=== PATIENT | female | born 1950 | race Caucasian/White ===

== ENCOUNTER 2017-05-16 05:01 | Inpatient (IN) | payer OTHER ==
[2017-04-17 11:35] VITALS: BMI 25.0
--- NOTE | 2017-04-17 12:18 | PAT Medication Instructions ---
Service Date Apr 17, 2017. Current Home Medication List Acetaminophen (Tylenol Arthritis Ext Rel), 650 MG PO Q8H PRN for Pain Aspirin (Aspirin Ec), 325 MG PO QAM Diphenhydramine Hcl (Sleep) (Sleep Aid), 1 TAB PO HS PRN for Sleep Ibuprofen (Advil), 400-600 MG PO Q4H Solifenacin (Vesicare), 5 MG PO DAILY PRN for BLADDER ISSUES Medication Instructions For Your Scheduled Surgery - Hold the following medications per your surgeon's instructions: Ibuprofen (Advil), 400-600 MG PO Q4H - Take the following medications the morning of surgery with a sip of water: Solifenacin (Vesicare), 5 MG PO DAILY PRN for BLADDER ISSUES (if needed) Aspirin (Aspirin Ec), 325 MG PO QAM (OKAY PER SURGEON) Acetaminophen (Tylenol Arthritis Ext Rel), 650 MG PO Q8H PRN for Pain (if needed , can take up to four hours before surgery) - Take the following medications as scheduled the night before surgery: Solifenacin (Vesicare), 5 MG PO DAILY PRN for BLADDER ISSUES (if needed) Diphenhydramine Hcl (Sleep) (Sleep Aid), 1 TAB PO HS PRN for Sleep (if needed) If you have any questions please call us at [phone] or [phone] or [phone]
[2017-04-17 13:16] LABS: BASO % 0.5 %; BASO ABS # 0.03 K/uL (0-0.2); COMPLETE YES; EOS % 2.2 %; HEMATOCRIT 42.5 % (37-47); LYMPH % 26.9 %; LYMPH ABS # 1.59 K/uL (1.2-3.4); MEAN CORPUSCULAR HEMOGLOBIN 26.4 pg (25-34); MEAN CORPUSCULAR HGB CONC 31.1 g/dl (32-36); MONO % 8.1 %; NEUT % 62.3 %; PLATELET COUNT 243 K/uL (130-400); WHITE BLOOD COUNT 5.92 K/uL (4.8-10.8)
[2017-04-17 13:26] LABS: PARTIAL THROMBOPLASTIN RATIO 1.1; PROTHROMBIN TIME (PATIENT) 10.5 SECONDS (9.0-12.0)
--- NOTE | 2017-04-17 13:48 | DIAGNOSTIC IMAGING REPORT ---
CHEST 2 VIEWS ROUTINE HISTORY: 66 years-old Female PAT preadmission exam without acute chest complaints COMPARISON: None available TECHNIQUE: Frontal and lateral views of the chest FINDINGS: Cardiomediastinal and hilar silhouettes are within normal limits. There is no pneumothorax, pleural effusion, focal airspace consolidation or overt pulmonary edema. Degenerative changes are seen within the shoulders and spine. IMPRESSION: No acute cardiopulmonary process. The above report was generated using voice recognition software. It may contain grammatical, syntax or spelling errors. Electronically signed by: Pablito Iniguez M.D. 04/17/2017 1:47 PM Dictated Date/Time: 04/17/2017 1:46 PM
[2017-04-17 14:03] LABS: BUN/CREATININE RATIO 18.9 (10-20); CALCIUM 9.6 mg/dl (8.5-10.1); CREATININE 0.73 mg/dl (0.60-1.20); POTASSIUM 4.2 mmol/L (3.5-5.1)
--- NOTE | 2017-05-10 14:01 | HISTORY & PHYSICAL EXAMINATION ---
DATE OF ADMISSION: 05/16/2017 CHIEF COMPLAINT: Bilateral knee pain and discomfort, left side greater than right. HISTORY OF PRESENT ILLNESS: The patient is a 66-year-old white female who now presents for surgical treatment of her left knee. She has got a long history of left knee pain and discomfort with known diagnosis of synovial osteochondromatosis. I have been following her for years and treating her conservatively. The pain has just gradually gotten worse. [place] and having really difficulty due to her knee pain and discomfort. She would now like to proceed with surgical treatment. The pain is constant. The more she walks, the more it hurts. It is really interfering with her recreational activities. PAST MEDICAL HISTORY: 1. Mitral valve prolapse. 2. Arthritis. PAST SURGICAL HISTORY: None. ALLERGIES: None. CURRENT MEDICATIONS: 1. Aspirin 2. Ibuprofen. 3. VESIcare. 4. Tylenol. SOCIAL HISTORY: A 66-year-old white female. The patient lives in [place]. She is . 5-10 drinks per week. FAMILY HISTORY: Heart disease, brain tumors, prostate cancer. REVIEW OF SYSTEMS: Negative for diabetes, neurologic problems, vascular problems, bleeding disorders. Denies any chest pain or shortness of breath. She does have fairly active lifestyle. PHYSICAL EXAMINATION: GENERAL: Reveals a pleasant, middle-aged female. She looks to be in excellent health. HEENT: Benign. NECK: Supple. No lymphadenopathy. LUNGS: Clear to auscultation. HEART: Regular rate and rhythm. ABDOMEN: Soft, nontender, nondistended. EXTREMITIES: Grossly neurovascularly intact except as follows: Examination of the left knee reveals the patient walks with a varus alignment to the knee. She does have a little bit of a varus thrust. She has got bony hypertrophy medially. She does have quite a bit of fullness to the back of her knee. Range of motion is 5-110. No instability. No pain with hip motion. X-RAYS: X-rays of the left knee revealed advanced left knee DJD. She has complete loss of her medial joint space. She has got multiple loose bodies in the knee, particularly in the posterior aspect of her knee. 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 She has failed conservative treatment and would like to have her left knee replaced as it is really limiting her lifestyle. PLAN: We will take her to the operating room and do a left total knee replacement. The risks and benefits of this procedure were explained to the patient including but not limited to DVT, PE, , infection, neurological injury, neurovascular, bleeding problem, pain, limited range of motion, stiffness, failure to relieve symptoms, incomplete relief of symptoms, need for further surgery in the future, fracture, leg length inequality, nerve palsy, etc. The patient understands and desires to proceed. Informed consent was obtained. We will do the best we can get as many as these loose pieces out, but we are not going to compromise her neurovascular status to do this. As far as discharge plans, she is planning to be discharged to home using [facility] home health program.
[2017-05-16] VITALS (9 sets, daily range): BP systolic 129–158; BP diastolic 69–87; PULSE 61–85; TEMP 36.6–36.8; O2SAT 97–100; Ht 165.1 cm; Wt 69.3 kg
[~2017-05-16] VITALS: Ht 165.1 cm; Wt 69.3 kg
[~2017-05-16 05:01] MED LIST: ACET1TAB84 PO; ASPI325T39 PO; DIPH1TAB98 PO; IBUP-1050 PO; VSC/5 PO
[2017-05-16] MEDS ORDERED: LACTATED RINGER'S 1000ML 1,000 ML IV SCH (06:00)
[2017-05-16] MEDS ORDERED: LACTATED RINGER'S 1000ML 500 ML IV ONE (06:00)
[2017-05-16] MEDS ORDERED: CEFAZOLIN 2000MG IV PUSH 10 ML IV SCH (06:00)
[2017-05-16] MEDS ORDERED: BUPIVACAINE LIPOSOME 266 MG, BUPIVACAINE/EPINEPHRINE INJ 50 ML, SODIUM CHLORIDE 0.9% PF... INFIL SCH ×3 (06:00)
[2017-05-16] MEDS ORDERED: LACTATED RINGER'S 1000ML IV SCH (06:00)
[2017-05-16] MEDS ORDERED: METOCLOPRAMIDE HCL 10 MG TAB PO SCH (06:00)
[2017-05-16] MEDS ORDERED: FAMOTIDINE 20 MG TAB PO SCH (06:00)
[2017-05-16] MEDS ORDERED: SCOPOLAMINE 1.5 MG TDSY TD SCH (06:00)
[2017-05-16] MEDS ORDERED: TRANEXAMIC ACID INJ 1,000 MG in SYRINGE 0 ML IV SCH (06:00)
[2017-05-16] MEDS ORDERED: ACETAMINOPHEN 500 MG TAB PO SCH (06:00)
[2017-05-16] MEDS ORDERED: GABAPENTIN 300 MG CAP PO SCH (06:00)
[2017-05-16] MEDS ORDERED: PROPOFOL IV EMULSION 10 MG/ML 20 ML VIAL IV ONE (06:22)
[2017-05-16] MEDS ORDERED: MIDAZOLAM HCL 1 MG/ML 2ML VIAL ONE ×2 (06:22→07:05)
[2017-05-16] MEDS ORDERED: LIDOCAINE HCL 2% 2 ML VIAL (20MG/ML) ONE (06:22)
[2017-05-16] MEDS ORDERED: BUPIVACAINE 0.5 % 5 MG/1 ML PF 10ML VIAL ONE (06:28)
[2017-05-16] MEDS ORDERED: BUPIVACAINE 0.25% 30 ML VIAL ONE (06:28)
[2017-05-16] MEDS ORDERED: BUPIVACAINE/EPINEPHRINE 0.25% 1:200,000 30 ML VIAL ONE (06:29)
[2017-05-16] MEDS ORDERED: SODIUM CHLORIDE 0.9% PF 50 ML VIAL ONE (06:29)
[2017-05-16] MEDS ORDERED: BUPIVACAINE LIPOSOME 1/3% 266 MG/20 ML VIAL INFIL ONE (06:29)
[2017-05-16] MEDS ORDERED: BACITRACIN 50000 UNIT VIAL ONE (06:29)
--- NOTE | 2017-05-16 06:56 | History & Physical Bridge Note ---
H&P Re-Evaluation Bridge Note: I have examined the patient, reviewed the History & Physical and in the interval since the performance of the History & Physical I have noted the following changes of clinical significance: No changes noted
[2017-05-16] MEDS ORDERED: EpHEDrine SULFATE INJ 50 MG/ML AMP IV PRN (07:15)
[2017-05-16] MEDS ORDERED: ATROPINE SULFATE 0.1 MG/ML 5ML SYR IV PRN (07:15)
[2017-05-16] MEDS ORDERED: ONDANSETRON INJ 2 MG/ML 2 ML VIAL IV PRN ×2 (07:15→08:45)
[2017-05-16] MEDS ORDERED: ZOLPIDEM TARTRATE 5 MG TAB PO PRN (08:45)
[2017-05-16] MEDS ORDERED: BISACODYL 10 MG SUPP PR PRN (08:45)
[2017-05-16] MEDS ORDERED: METOCLOPRAMIDE HCL INJ 5 MG/ML 2 ML VIAL IV PRN (08:45)
[2017-05-16] MEDS ORDERED: ALUMINUM/MAGNESIUM/SIMETH (MAALOX MAX) 30 ML UDC PO PRN (08:45)
[2017-05-16] MEDS ORDERED: MAGNESIUM HYDROXIDE SUSP 30 ML UDC PO PRN (08:45)
[2017-05-16] MEDS ORDERED: SILVER SULFADIAZINE 1% CR 50 GM JAR EXT PRN (08:45)
[2017-05-16] MEDS ORDERED: DiphenhydrAMINE HCL 50 MG/ML VIAL IV PRN (08:45)
[2017-05-16] MEDS ORDERED: OXYCODONE HCL IR 5 MG TAB (IMMEDIATE RELEASE) PO PRN (08:45)
--- NOTE | 2017-05-16 08:45 | [facility] Post Operative Brief Note ---
Immediate Operative Summary Operative Date May 16, 2017. Pre-Operative Diagnosis Left knee degenerative joint disease Post-Operative Diagnosis Left knee degenerative joint disease Procedure(s) Performed Left total knee arthroplasty, cemented Surgeon Dr. Hung Disk And Tape Machine Tender Surgeon(s) Felton Perez PA-C Estimated Blood Loss 50 mL Findings Left Knee DJD; Multiple Loose Bodies Fluids (cc crystalloids) 1600 cc Specimens A: Left knee bone and tissue Drains None Anesthesia Spinal Complication(s) None Disposition Recovery Room / PACU
--- NOTE | 2017-05-16 09:15 | OPERATIVE REPORT ---
DATE OF OPERATION: 05/16/2017 SURGEON: Rigo Hung MD HAM STRINGER: CARMINA Mohan PREOPERATIVE DIAGNOSES: 1. Left knee degenerative joint disease. 2. 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 POSTOPERATIVE DIAGNOSES: Same. PROCEDURE PERFORMED: Left cemented posterior stabilized total knee arthroplasty. COMPLICATIONS: None. ESTIMATED BLOOD LOSS: 50 mL. FLUID REPLACEMENT: 1600 mL crystalloid fluid replacement. TOURNIQUET TIME: 59 minutes at 300 mmHg. ANESTHESIA: Spinal with adductor canal block. DRAINS: None. SPECIMENS: 1. Left knee sent for pathology. 2. Multiple loose bodies. OPERATIVE INDICATIONS: The patient is a 67-year-old very active female who has had a long history of left knee pain and discomfort. She has been through extensive conservative care over the years. Her symptoms became more unmanageable and really starting to affect her quality of life. She has tried to maintain an active lifestyle, but having difficulty. She failed conservative treatment and elected to proceed with total knee arthroplasty. The patient has advanced knee DJD with multiple loose bodies in the posterior aspect of her knee consistent with osteochondromatosis. OPERATIVE FINDINGS: Operative findings revealed advanced left knee DJD. She had extensive grade 4 changes in the medial compartment. She did have multiple loose bodies in the posterior aspect of her knee. There were certainly multiple more loose bodies in the very posterior aspect of her knee. Moderate size joint effusion. She had a fixed varus deformity to her knee. She had osteophytes primarily in the medial compartment. OPERATIVE IMPLANTS: Operative implants consisted of: 1. Biomet Vanguard size 65 left posterior stabilized femoral component. 2. Biomet size 71 tibial tray. 3. A 10-mm posterior stabilized polyethylene insert. 4. A 31 x 8 all poly patella. OPERATIVE PROCEDURE: The patient was taken to the operating room, identified and placed on the operating table in the supine position. All contact areas were appropriately padded. IV antibiotics were provided by anesthesia team. A spinal anesthetic and adductor canal block had been provided in the holding area. Peña catheter was placed in sterile fashion. The left thigh tourniquet was then placed and left lower extremity was then prepped and draped in the usual sterile fashion. Left leg was elevated and exsanguinated with Esmarch and tourniquet was placed at 300 mmHg. An anterior approach to the left knee was then performed through a longitudinal incision centered over the patella. Sharp dissection was carried through the subcutaneous tissues down to the level of the extensor mechanism. A medial parapatellar arthrotomy incision was made. Some subperiosteal dissection was carried out medially. The fat pad was resected from beneath the patellar tendon. The lateral patellofemoral ligament was released. The patella was everted and knee was flexed. The osteophytes were taken off the distal femur. The ACL and PCL were then released from the distal femur and the tibia subluxated anteriorly. The external tibial alignment jig was then placed in the anterior face of the tibia and adjusted to 14 mm medially. Proximal tibial cut was made to remove about a millimeter of bone from the most deficient aspect of the medial tibial plateau. Tibia was sized to a size 71. Some osteophytes were taken off medial and posteromedially. Attention was then drawn to the femur. The distal femur was entered with a sharp drill. Intramedullary canal was suctioned. A left 5-degree valgus cutting guide was placed. The distal femoral cutting block was pinned in place. Distal femoral cut was made to take an additional 3 mm of bone off the distal femur. The femur was then sized to a size 65. We did downsize this almost entire size due to her very narrow medial lateral dimensions. The AP cutting block was pinned parallel to the epicondylar axis, which was 4 degrees of external rotation. The anterior cut, anterior chamfer, posterior cut, and posterior chamfer cuts were made. Box cutting guide was placed and adjusted slightly lateral, the box cut was made. The knee was flexed. The remnants of the medial and lateral menisci were excised. I did remove multiple loose bodies from the posterior aspect of it. I did make a small incision in the posterior medial capsule and stuck my finger back in the posterior aspect of the knee. I could feel some loose bodies, which were adherent to the tissues very deep, but I did not feel it was worth trying to fix these out as there was pretty posterior and then would risk neurovascular damage. There did not seem any way that they would enter into the knee joint, so I left the remainder of these alone. A trial femoral component was placed. Tibial tray was pinned in maximum external rotation and drill and stem punch were used to create defect in proximal tibia for the tibial tray. The knee was then trialed and a 10-mm insert fit most appropriately. Attention was then drawn to the patella. The patella was cleaned of all soft tissues. Patella thickness measured 18 mm and it was cut down to 12. It was sized to a size 31 patella. Lug holes were drilled for the 31 patella. The lateral osteophyte was removed. Patella button was placed. Knee was taken through range of motion and patella tracked nicely with no thumbs test. Attention was then drawn toward placement of permanent components. All trial components were removed. A bone plug was placed in the distal femur to limit blood loss. A double batch of Palacos G cement was mixed. A left size 65 posterior stabilized femoral component, size 71 tibial tray, 10-mm posterior stabilized polyethylene insert, and a 31 x 8 all poly patella were then cemented in place. Knee was brought out into full extension until cement hardened. A final cement check was then performed. Pericapsular tissues were injected with a total of 100 mL of a combination of 20 mL of Exparel, 30 mL of normal saline, and 50 mL of 0.25% Marcaine with epinephrine. The patient did receive 1 gram of tranexamic acid. The tourniquet was then let down for final tourniquet time of 59 minutes. The hemostasis was assured with the use of electrocautery. The wound was once again irrigated. The extensor mechanism was then closed with a combination of #1 PDS suture and #1 Vicryl suture in a [id number] fashion. Extensor mechanism was checked and found to be intact. The subcutaneous tissues were then closed with 2-0 Dexon suture in buried interrupted fashion. Skin was closed skin slim. Leg was then cleaned and dried and a sterile dressing of Xeroform, 4 x 4, sterile cast padding and Isaac bandage were applied. The patient was then transferred to the recovery room in stable condition. The patient tolerated the procedure well with no complications. All needle and sponge counts were correct at the end of the operation. I attest to the content of the Intraoperative Record and any orders documented therein. Any exception s are noted below.
--- NOTE | 2017-05-16 09:32 | DIAGNOSTIC IMAGING REPORT ---
TWO VIEWS LEFT KNEE CLINICAL HISTORY: Postoperative examination. FINDINGS: AP and crosstable lateral portable views of the left knee are compared to study dated 03/16/2017. The skeletal structures are osteopenic. A left knee arthroplasty is in near anatomic alignment. There has been undersurface remodeling of the patella. No acute fracture is seen. There are expected postoperative changes around the knee including skin clips, soft tissue edema, and subcutaneous gas. Numerous calcified joint bodies posterior to the knee are similar to previous. IMPRESSION: Expected postoperative changes status post left knee arthroplasty. No acute fracture is seen. Electronically signed by: Ruddy Zacarias M.D. 05/16/2017 9:31 AM Dictated Date/Time: 05/16/2017 9:28 AM
--- NOTE | 2017-05-16 09:55 | Anesthesiology Progress Note ---
Anesthesia Post Op Note Date & Time May 16, 2017 at 09:55 Vital Signs Pain Intensity: 0 Vital Signs Past 12 Hours Date Time Temp Pulse Resp B/P (MAP) Pulse Ox O2 Delivery O2 Flow Rate FiO2 05/16/17 09:45 36.4 69 16 129/73 98 Nasal Cannula 2 05/16/17 09:35 71 16 124/68 99 Nasal Cannula 2 05/16/17 09:25 73 14 128/72 99 Nasal Cannula 2 05/16/17 09:15 76 13 123/68 100 Nasal Cannula 2 05/16/17 09:05 73 12 126/62 100 Nasal Cannula 2 05/16/17 08:55 92 19 128/71 100 Nasal Cannula 2 05/16/17 08:48 36.1 82 16 132/67 99 Nasal Cannula 2 05/16/17 05:40 36.7 85 20 158/87 98 Room Air Notes Mental Status: alert / awake / arousable, participated in evaluation Pt Amnestic to Procedure: Yes Nausea / Vomiting: adequately controlled Pain: adequately controlled Airway Patency, RR, SpO2: stable & adequate BP & HR: stable & adequate Hydration State: stable & adequate Anesthetic Complications: no major complications apparent
[2017-05-16] MEDS: D5W AND 1/2NSS + 20MEQ KCL 1,000 ML IV SCH ×2 (11:45→20:34)
[2017-05-16] MEDS: PANTOprazole SOD 40 MG TAB PO SCH (11:45)
[2017-05-16] MEDS ORDERED: PNEUMOCOCCAL ADMINISTRATION CHARGE ONE (12:45)
[2017-05-16] MEDS ORDERED: PNEUMOCOCCAL POLYSACCHARIDES 25 MCG/0.5 ML VIAL/SYR IM. ONE (12:45)
[2017-05-16] MEDS: FERROUS GLUCONATE 324 MG TAB PO SCH ×2 (13:32→18:31)
[2017-05-16] MEDS: KETOROLAC TROMETHAMINE 15 MG/ML VIAL IV. SCH ×2 (13:34→20:34)
[2017-05-16] MEDS ORDERED: TRANEXAMIC ACID INJ 1,000 MG in SODIUM CHLORIDE 0.9% 100ML 100 ML IV SCH (14:00)
[2017-05-16] MEDS: ACETAMINOPHEN 500 MG TAB PO SCH ×2 (14:24→21:48)
--- NOTE | 2017-05-16 14:40 | PROGRESS NOTE ---
DATE: 05/16/2017 SUBJECTIVE: A 67-year-old white female, postop day #1 from a left knee replacement. She is doing well. Not having much pain yet. No chest pain or shortness of breath. Not feeling dizzy or lightheaded. OBJECTIVE: VITAL SIGNS: Temperature is 36.7. Vital signs stable. PHYSICAL EXAMINATION: GENERAL: Reveals a healthy, pleasant middle-aged female. She is sitting up in her bed and looks pretty comfortable. She is moving her leg around quite freely. LUNGS: Clear to auscultation. HEART: Has a regular rate and rhythm. ABDOMEN: Soft, nontender, nondistended. EXTREMITIES: Grossly neurovascularly intact except as follows: Examination of the left leg reveals the dressing to be clean, dry and intact. Leg is well aligned. She can do a good straight leg raise. She can dorsiflex and plantarflex her foot appropriately. She is neurologically intact. X-RAYS: X-rays of the left knee from recovery room were reviewed. It shows a left cemented posterior stabilized total knee arthroplasty. Components look to be in good position. No signs of problems. ASSESSMENT: A 67-year-old white female, postop from a left knee replacement, doing well. Pain is controlled. She is neurologically intact. PLAN: 1. DVT prophylaxis including thigh-high TEDs, SCDs, and aspirin twice a day. 2. PT/OT. Weight bear as tolerated. Left total knee protocol. 3. Pain control, doing well with current pain regimen. 4. IV antibiotics x24 hours. 5. Disposition: Plan to discharge to home with some home health once adequately recovered.
[2017-05-16] MEDS: CHECK SCOPOLAMINE PATCH PLACEMENT SCH ×2 (15:55→23:35)
[2017-05-16] MEDS: CEFAZOLIN IV 1,000 MG in SYRINGE 0 ML IV SCH ×2 (15:56→23:35)
[2017-05-16] MEDS ORDERED: ACET-24 PO (20:12)
[2017-05-16] MEDS ORDERED: FRRG PO (20:12)
[2017-05-16] MEDS ORDERED: ASPEC325 PO (20:12)
[2017-05-16] MEDS ORDERED: RXC5 PO (20:12)
--- NOTE | 2017-05-16 20:15 | Discharge Instructions ---
Discharge Instructions Date of Service May 16, 2017. Admission Reason for Admission: Left Knee Degenerative Joint Disease Discharge Discharge Diagnosis / Problem: Left Knee Replacment Discharge Goals Goal(s): Decrease discomfort, Improve function, Increase independence, Improve disease control, Therapeutic intervention Activity Recommendations Activity Limitations: per Instructions/Follow-up section Weightbearing Status: Left weightbearing . Instructions / Follow-Up Instructions / Follow-Up ACTIVITY RECOMMENDATIONS: Physical Therapy: * You will go to physical therapy three times each week for four to six weeks after your surgery in order to regain your knee range of motion and to retrain your knee to work properly. * It is just as important to make sure you are getting your knee perfectly straight as it is to regain your knee bend. * Taking a pain pill an hour before therapy can help you have a more productive and comfortable therapy session. Home Exercise: * You were shown a series of exercises (heel props, heel slides, etc.) in the hospital. Do these exercises three to four times each day including the exercises you were shown in physical therapy. Walking: * Get up and walk several times each day. For the first four weeks, try not to stand or walk for more than one hour at a time. If you do stand or walk for more than one hour, you will not hurt anything, but your knee and leg will likely swell. * As you feel comfortable, you may change from the walker or crutches to a cane and then to independent walking. MEDICATIONS: New Medicine: * You will likely be taking one or more of these medications: 1. Oxycodone - A quick and shorter-acting pain medication. Take one to two tablets every four to six hours to lessen your pain. 2. Iron Sulfate - Take two times each day for the month after surgery to help you replace the blood lost during surgery. 3. Aspirin - Thins your blood to lessen the chance of forming a blood clot. * The most common side effects of pain medicine and iron are nausea and constipation. If nausea or constipation is too much of a problem or if you have any questions about your new medicines or doses, call [facility] at [phone]. We will try to help you manage these issues. VERY IMPORTANT TO READ AND REVIEW" Pain: * The immediate post-operative period after knee replacement surgery is often quite painful. * You are given a prescription for pain medicine. You should take it, as directed, when you need it, especially before physical therapy and before going to bed. Pain that interferes with sleep is very common and can last several months. * You will likely need pain medicine for the first four to six weeks. It will not stop all of the pain. The pain will lessen and as you feel better, you may change to milder pain medicine such as Tylenol. * The most common side effects of pain medicine are nausea and constipation, so don't take more than you need. SPECIAL CARE INSTRUCTIONS: TEDs/Elastic Stockings: * The white elastic stockings help limit swelling and prevent blood clots from forming in your legs. The more you wear them, the more they work. * Wear them for six weeks after knee replacement surgery and four weeks after partial knee replacement. Prevention of Infection: * Take antibiotics one hour before any dental cleaning, dental work, urological procedure, gastrointestinal procedure or any invasive surgery in order to prevent your new joint from getting infected. * You may get the antibiotics from the doctor performing the procedure or you may call our office at before and we will call in a prescription to the pharmacy of your choice. Things to Watch For: * Drainage from the incision site that occurs more than one week after your surgery. * Severely increased knee/leg pain or swelling. * Increased redness at the incision site. * Fever above 102 degrees Fahrenheit. * Unusual chest pain or shortness of breath. * Unusual pain or burning with urination. Call [facility] at with any of the above problems or if you have any questions about your medicines or recovery. FOLLOW UP VISIT: Make an appointment to see your doctor for approximately two weeks after surgery for a progress check and staple removal by calling the office at . Current Hospital Diet Patient's current hospital diet: Regular Diet Discharge Diet Recommended Diet: Regular Diet Procedures Procedures Performed: Left total knee arthroplasty, cemented Pending Studies Studies pending at discharge: no Medical Emergencies . Who to Call and When: Medical Emergencies: If at any time you feel your situation is an emergency, please call [phone] immediately. . Non-Emergent Contact Non-Emergency issues call your: Surgeon . "Provider Documentation" section prepared by Rigo Hung. . VTE Core Measure Inpt VTE Proph given/why not?: Other Anticoagulation, T.E.D. Stockings, SCD's
[2017-05-16] MEDS: TAPENTADOL ER 50 MG TABCR PO SCH (20:33)
[2017-05-16] MEDS: ASPIRIN 325 MG ECTAB PO SCH (20:34)
[2017-05-16] MEDS: DOCUSATE SODIUM 100 MG CAP PO SCH (20:35)
[2017-05-16] MEDS: SENNA 8.6 MG TAB PO SCH (20:35)
[2017-05-17] VITALS (9 sets, daily range): BP systolic 66–148; BP diastolic 42–80; PULSE 38–72; TEMP 36.5–37.1; O2SAT 96–99
[2017-05-17] MEDS: KETOROLAC TROMETHAMINE 15 MG/ML VIAL IV. SCH ×4 (02:38→21:06)
--- NOTE | 2017-05-17 04:23 | Progress Note ---
Progress Note Date of Service May 17, 2017. Progress Note CODE PURPLE NOTE Code purple called around 415AM, pt had vitals done, was hypotensive, and fell backwards onto bed. Hit her head on the bedrail, was momentarily confused but then alert, oriented. Upon my arrival she was alert and speaking coherently. BSG was checked and was 116. She reports she felt like she needed to have a bowel movement but was unable to. A/P: Likely vasovagal syncope - EKG obtained - similar to pre-op EKG - 1L fluid bolus now - Would recommend consultation with hospitalist service in AM. Pt has a [facility] PCP so this would be the [facility] hospitalist group. 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
[2017-05-17 04:37] LABS: HEMATOCRIT 32.3 % (37-47); MEAN CELL VOLUME 87.3 fL (80-100); MEAN CORPUSCULAR HEMOGLOBIN 28.4 pg (25-34); MEAN CORPUSCULAR HGB CONC 32.5 g/dl (32-36); MEAN PLATELET VOLUME 9.8 fL (7.4-10.4); PLATELET COUNT 145 K/uL (130-400); WHITE BLOOD COUNT 8.35 K/uL (4.8-10.8)
[2017-05-17 04:55] LABS: BUN/CREATININE RATIO 15.4 (10-20); CALCIUM 8.5 mg/dl (8.5-10.1); CREATININE 0.84 mg/dl (0.60-1.20); POTASSIUM 4.2 mmol/L (3.5-5.1)
[2017-05-17 05:06] LABS: THYROID STIMULATING HORMONE 2.83 uIu/ml (0.300-4.500)
[2017-05-17] MEDS: D5W AND 1/2NSS + 20MEQ KCL 1,000 ML IV SCH (05:19)
[2017-05-17] MEDS: ACETAMINOPHEN 500 MG TAB PO SCH ×3 (05:20→21:06)
--- NOTE | 2017-05-17 05:21 | Medical Consult ---
Consultation Date of Consultation: May 17, 2017. Attending Physician: Rigo Hung M.D. History of Present Illness This is a 67 year old female with no significant past medical history presented for repair of her L knee degenerative joint disease. She had a total L knee arthroplasty done on 05/16. She was doing well after the surgical procedure; denying any pain. No other issues to note at that time. At around 4AM on 05/17, she felt somewhat nauseous and thought she had to go to the bathroom for a bowel movement. She got up and sat up at bedside and passed out and loss consciousness. As per nursing, her HRs were in the 30s-40s and her blood pressure was in the 60s-70s systolically and a code purple was called. She was given 1L of fluid bolus and felt better with resolution of her bradycardia and hypotension. During my exam, she had no complaints. Family History Cancer Heart disease Social History Smoking Status: Never Smoker Marital Status: Housing Status: lives with family Occupation Status: employed Allergies Coded Allergies: No Known Allergies (Unverified , 05/16/17) Current Inpatient Medications Current Inpatient Medications Medications (Trade) Dose Ordered Sig/Wilian Route Start Time Stop Time Status Last Admin Dose Admin Lactated Ringer's 1,000 ml @ 15 mls/hr Q24H IV 05/16/17 06:00 05/17/17 05:59 05/16/17 06:00 15 MLS/HR Miscellaneous (Remove Transderm-Scop Patch) 1 ea Q72H N/A 05/19/17 06:00 05/19/17 06:01 Miscellaneous Information (Check Scopolamine Patch Placement) 1 ea QS N/A 05/16/17 16:00 05/19/17 05:59 05/16/17 23:35 1 EA Potassium Chloride/Dextrose/ Sod Cl 1,000 ml @ 100 mls/hr Q10H IV 05/16/17 11:00 05/17/17 10:59 05/16/17 20:34 100 MLS/HR Oxycodone HCl (Roxicodone Immediate Rel Tab) 5 mg Q4H PRN PO 05/16/17 08:45 05/30/17 08:44 Acetaminophen (Tylenol Tab) 1,000 mg Q8H PO 05/16/17 14:00 06/15/17 13:59 05/16/17 21:48 1,000 MG Magnesium Hydroxide (Milk Of Magnesia Susp) 30 ml Q6H PRN PO 05/16/17 08:45 06/15/17 08:44 Bisacodyl (Dulcolax Supp) 10 mg DAILY PRN MA 05/16/17 08:45 06/15/17 08:44 Senna (Senokot Tab) 17.2 mg HS PO 05/16/17 21:00 06/15/17 20:59 05/16/17 20:35 17.2 MG Docusate Sodium (coLACE CAP) 100 mg BID PO 05/16/17 21:00 06/15/17 20:59 05/16/17 20:35 100 MG Diphenhydramine HCl (Benadryl Cap) 25 mg Q8H PRN PO 05/16/17 08:45 06/15/17 08:44 Diphenhydramine HCl (Benadryl Inj) 25 mg Q8H PRN IV 05/16/17 08:45 06/15/17 08:44 Al Hydrox/Mg Hydrox/Simethicone (Maalox Max Susp) 15 ml Q4H PRN PO 05/16/17 08:45 06/15/17 08:44 Zolpidem Tartrate (Ambien Tab) 5 mg HSZ PRN PO 05/16/17 08:45 06/15/17 08:44 Multivitamins (Multivitamin Tab) 1 tab QAM PO 05/17/17 09:00 06/16/17 08:59 Ondansetron HCl (Zofran Inj) 4 mg Q6H PRN IV 05/16/17 08:45 06/15/17 08:44 Metoclopramide HCl (Reglan Inj) 10 mg Q6H PRN IV 05/16/17 08:45 06/15/17 08:44 Ferrous Gluconate (Ferrous Gluconate Tab) 324 mg TIDM PO 05/16/17 12:30 06/15/17 12:29 05/16/17 18:31 324 MG Pantoprazole Sodium (Protonix Tab) 40 mg QAM PO 05/16/17 11:00 06/15/17 10:59 05/16/17 11:45 40 MG Silver Sulfadiazine (Silvadene 1% Crm 50GM Jar) 1 appln BID PRN EXT 05/16/17 08:45 06/15/17 08:44 Aspirin (Ecotrin Tab) 325 mg BID PO 05/16/17 21:00 06/15/17 20:59 05/16/17 20:34 325 MG Tapentadol (Nucynta Er Tab) 50 mg Q12 PO 05/16/17 21:00 06/15/17 20:59 05/16/17 20:33 50 MG Ketorolac Tromethamine (Toradol Inj) 15 mg Q6H IV. 05/16/17 14:00 05/18/17 13:59 05/17/17 02:38 15 MG Diphenhydramine HCl (Benadryl Cap) 25 mg HS PRN PO 05/16/17 08:45 06/15/17 08:44 Solifenacin (Vesicare) 5 mg DAILY PO 05/17/17 09:00 06/16/17 08:59 Review of Systems Constitutional: No fever, No chills, No sweats, No weight loss, No weakness, No fatigue Eyes: No worsening of vision ENT: No hearing loss Respiratory: No cough, No sputum, No shortness of breath Cardiovascular: No chest pain, No edema, No palpitations Abdomen: + nausea, No pain, No vomiting, No diarrhea, No GI bleeding Musculoskeletal: No joint pain, No muscle pain Genitourinary - Female: No dysuria, No urinary frequency, No urinary urgency, No urinary incontinence, No urinary retention, No hematuria Neurologic: + memory loss (loss of consciousness for a few minutes) Psychiatric: No depression symptoms Endocrine: No fatigue Hematologic / Lymphatic: No abnormal bleeding/bruising Integumentary: No rash Allergic / Immunologic: No environmental allergies, No seasonal allergies Physical Exam Date Time Temp Pulse Resp B/P (MAP) Pulse Ox O2 Delivery O2 Flow Rate FiO2 05/17/17 04:28 68 115/71 (86) 05/17/17 04:25 52 77/56 (63) 05/17/17 04:19 38 66/42 (50) 97 Room Air 05/17/17 03:35 36.8 72 18 124/72 (89) 97 Room Air 05/16/17 23:42 Room Air 05/16/17 22:56 36.8 68 18 137/74 (95) 98 Room Air 05/16/17 20:00 36.6 63 16 131/81 (98) 97 Room Air 05/16/17 15:25 36.6 65 16 154/82 (106) 100 Nasal Cannula 2.0 05/16/17 15:10 Nasal Cannula 2.0 05/16/17 13:10 71 16 144/79 (100) 100 Nasal Cannula 2.0 05/16/17 12:10 61 16 148/80 (102) 100 Nasal Cannula 2.0 05/16/17 11:10 65 16 133/72 (92) 100 Nasal Cannula 2.0 05/16/17 10:50 99 Nasal Cannula 2.0 05/16/17 10:39 64 16 134/76 (95) 100 Nasal Cannula 2.0 05/16/17 10:10 99 Nasal Cannula 2.0 05/16/17 10:10 36.7 65 16 129/69 (89) 99 Nasal Cannula 2.0 05/16/17 10:00 64 23 126/68 98 Nasal Cannula 2 05/16/17 09:45 36.4 69 16 129/73 98 Nasal Cannula 2 05/16/17 09:35 71 16 124/68 99 Nasal Cannula 2 05/16/17 09:25 73 14 128/72 99 Nasal Cannula 2 05/16/17 09:15 76 13 123/68 100 Nasal Cannula 2 05/16/17 09:05 73 12 126/62 100 Nasal Cannula 2 05/16/17 08:55 92 19 128/71 100 Nasal Cannula 2 05/16/17 08:48 36.1 82 16 132/67 99 Nasal Cannula 2 05/16/17 05:40 36.7 85 20 158/87 98 Room Air General Appearance: no apparent distress Head: normocephalic, atraumatic Eyes: normal inspection ENT: hearing grossly normal Neck: supple Respiratory/Chest: chest non-tender, lungs clear, normal breath sounds, no respiratory distress, no accessory muscle use Cardiovascular: regular rate, rhythm, no edema, no murmur Abdomen/GI: normal bowel sounds, non tender, soft Extremities/Musculoskelatal: + pertinent finding (LLE is wrapped, moving toes well) Neurologic/Psych: php architect II-XII nml as tested, no motor/sensory deficits, alert, normal mood/affect, oriented x 3 Skin: normal color Lymphatic: no adenopathy Laboratory Results Last 24 Hours Test 05/17/17 04:15 05/17/17 04:24 Bedside Glucose 131 mg/dl White Blood Count 8.35 K/uL Red Blood Count 3.70 M/uL Hemoglobin 10.5 g/dL Hematocrit 32.3 % Mean Corpuscular Volume 87.3 fL Mean Corpuscular Hemoglobin 28.4 pg Mean Corpuscular Hemoglobin Concent 32.5 g/dl RDW Standard Deviation 52.8 fL RDW Coefficient of Variation 16.6 % Platelet Count 145 K/uL Mean Platelet Volume 9.8 fL Sodium Level 137 mmol/L Potassium Level 4.2 mmol/L Chloride Level 103 mmol/L Carbon Dioxide Level 29 mmol/L Anion Gap 5.0 mmol/L Blood Urea Nitrogen 13 mg/dl Creatinine 0.84 mg/dl Est Creatinine Clear Calc Drug Dose 64.4 ml/min Estimated GFR () 83.9 Estimated GFR (Non- 72.4 BUN/Creatinine Ratio 15.4 Random Glucose 142 mg/dl Calcium Level 8.5 mg/dl Assessment & Plan This is a 67 year old female with no significant past medical history presented for repair of her L knee degenerative joint disease and had a syncopal episode. Syncope with Loss of Consciousness patient had a syncopal episode after sitting up to the side of her bed HRs and blood pressure dropped given a liter fluid bolus and she felt better blood pressure and HRs are stable now; syncope likely due to volume depletion CBC, PRP, TSH, lyme ordered patient did have a tick embedded near her umbilicus at the end of March 2017 L TKA POD #1 pain controlled no bowel movement yet aspirin for DVT ppx PT/OT and weight bearing status as per ortho DVT ppx aspirin BID FULL CODE
[2017-05-17 07:13] LABS: LYME DISEASE AB IGG NEG (NEG); LYME DISEASE AB IGM NEG (NEG)
[2017-05-17] MEDS: CHECK SCOPOLAMINE PATCH PLACEMENT SCH ×3 (08:21→23:17)
[2017-05-17] MEDS: FERROUS GLUCONATE 324 MG TAB PO SCH ×3 (08:21→18:03)
[2017-05-17] MEDS: DOCUSATE SODIUM 100 MG CAP PO SCH ×2 (08:30→21:06)
[2017-05-17] MEDS: PANTOprazole SOD 40 MG TAB PO SCH (08:30)
[2017-05-17] MEDS: ASPIRIN 325 MG ECTAB PO SCH ×2 (08:30→21:06)
[2017-05-17] MEDS: MULTIVITAMIN TAB PO SCH (08:30)
[2017-05-17] MEDS: TAPENTADOL ER 50 MG TABCR PO SCH ×2 (08:30→21:06)
--- NOTE | 2017-05-17 10:13 | Anesthesiology Progress Note ---
Anesthesia Post Op Note Date & Time May 17, 2017 at 10:12 Vital Signs Pain Intensity: 0.0 Vital Signs Past 12 Hours Date Time Temp Pulse Resp B/P (MAP) Pulse Ox O2 Delivery O2 Flow Rate FiO2 05/17/17 08:03 36.9 64 14 138/80 (99) 98 Room Air 05/17/17 07:47 98 Room Air 05/17/17 07:22 Room Air 05/17/17 04:28 68 115/71 (86) 05/17/17 04:25 52 77/56 (63) 05/17/17 04:19 38 66/42 (50) 97 Room Air 05/17/17 03:35 36.8 72 18 124/72 (89) 97 Room Air 05/16/17 23:42 Room Air 05/16/17 22:56 36.8 68 18 137/74 (95) 98 Room Air Notes Mental Status: alert / awake / arousable, participated in evaluation Pt Amnestic to Procedure: Yes Nausea / Vomiting: adequately controlled Pain: adequately controlled Airway Patency, RR, SpO2: stable & adequate BP & HR: stable & adequate Hydration State: stable & adequate Neuraxial Anesthesia: sensory block resolved Anesthetic Complications: no major complications apparent
--- NOTE | 2017-05-17 12:25 | ECHOCARDIOGRAM REPORT ---
*NOTICE TO RECEIVING [employer] This information is strictly Confidential and protected under [place] law. [place] law prohibits you from making any further disclosure of this information unless further disclosure is expressly permitted by the written consent of the person to whom it pertains or is authorized by law. A general authorization for the release of medical or other information is not sufficient for this purpose. Hospital accepts no responsibility if the information is made available to any other person, INCLUDING THE PATIENT. Interpretation Summary * Name: ELIZABETH CAMPBELL Study Date: 05/17/2017 08:27 AM BP: 115/71 mmHg * Patient Location: C.3E\S\E307\S\1 HR: 68 * : 1950 (M/d/yyyy) Gender: Female Height: 65 in * Age: 67 yrs Ethnicity: CA Weight: 152 lb * Ordering Physician: Taiwo Patrick * Referring Physician: Rigo Hung * Performed By: Selina Bailey RDCS * * Reason For Study: SYNCOPE * BSA: 1.8 m2 * -- Conclusions -- * The left ventricle is normal in size. * Ejection Fraction = 65-70%. * The right ventricular systolic function is normal. * The left atrial size is normal. * Right atrial size is normal. * There is mild mitral regurgitation. * There is trace tricuspid regurgitation. Procedure Details * A complete two-dimensional transthoracic echocardiogram was performed (2D, M-mode, Doppler and color flow Doppler). Left Ventricle * The left ventricle is normal in size. * There is normal left ventricular wall thickness. * Ejection Fraction = 65-70%. * The left ventricular wall motion is normal. Right Ventricle * The right ventricle is normal size. * The right ventricular systolic function is normal. Atria * The left atrial size is normal. * Right atrial size is normal. * The interatrial septum is intact with no evidence for an atrial septal defect. Mitral Valve * The mitral valve anatomy is normal. * There is mild mitral regurgitation. Tricuspid Valve * The tricuspid valve anatomy is normal. * There is trace tricuspid regurgitation. Aortic Valve * The aortic valve is tricuspid. The leaflet thickness if normal. There is no aortic stenosis, and no significant insufficiency. * Aortic stenosis is absent. * There is no significant aortic regurgitation. Pulmonic Valve * The pulmonic valve is not well visualized. * There is no significant pulmonary regurgitation. Great Vessels * The aortic root and proximal ascending aorta are normal sized. Pericardium/Pleural * There is no pericardial effusion. MMode 2D Measurements and Calculations IVSd 1.8 cm IVSs 2.1 cm LVIDd 4.1 cm LVIDs 2.5 cm LVPWd 1.3 cm LVPWs 1.9 cm IVS/LVPW 1.4 FS 38.0 % EDV(Teich) 72.2 ml ESV(Teich) 22.6 ml EF(Teich) 68.7 % EDV(cubed) 66.6 ml ESV(cubed) 15.8 ml EF(cubed) 76.2 % % IVS thick 18.2 % % LVPW thick 53.4 % LV mass(C)d 244.6 grams LV mass(C)dI 139.0 grams/m\S\2 LV mass(C)s 223.4 grams LV mass(C)sI 126.9 grams/m\S\2 CO(Teich) 3.5 l/min CI(Teich) 2.0 l/min/m\S\2 SV(Teich) 49.7 ml SI(Teich) 28.2 ml/m\S\2 CO(cubed) 3.6 l/min CI(cubed) 2.0 l/min/m\S\2 SV(cubed) 50.7 ml SI(cubed) 28.8 ml/m\S\2 ACS 1.7 cm LA dimension 3.6 cm asc Aorta Diam 3.2 cm LVOT diam 1.9 cm LVOT area 2.8 cm\S\2 LVAd ap4 26.2 cm\S\2 LVLd ap4 7.4 cm EDV(MOD-sp4) 76.2 ml LVAs ap4 12.6 cm\S\2 LVLs ap4 5.4 cm ESV(MOD-sp4) 24.6 ml EF(MOD-sp4) 67.7 % LVAd ap2 24.6 cm\S\2 LVLd ap2 7.4 cm EDV(MOD-sp2) 69.3 ml LVAs ap2 12.0 cm\S\2 LVLs ap2 5.6 cm ESV(MOD-sp2) 22.1 ml EF(MOD-sp2) 68.1 % CO(MOD-sp4) 3.6 l/min CI(MOD-sp4) 2.1 l/min/m\S\2 SV(MOD-sp4) 51.6 ml SI(MOD-sp4) 29.3 ml/m\S\2 CO(MOD-sp2) 3.3 l/min CI(MOD-sp2) 1.9 l/min/m\S\2 SV(MOD-sp2) 47.2 ml SI(MOD-sp2) 26.8 ml/m\S\2 Doppler Measurements and Calculations MV E max shaina 95.6 cm/sec MV A max shaina 78.1 cm/sec MV E/A 1.2 MV dec time 0.23 sec Ao V2 max 165.9 cm/sec Ao max PG 11.0 mmHg Ao max PG (full) 6.6 mmHg OLI(V,A) 1.7 cm\S\2 OLI(V,D) 1.7 cm\S\2 LV V1 max PG 4.4 mmHg LV V1 max 105.3 cm/sec MR max shaina 564.9 cm/sec MR max PG 127.6 mmHg PA V2 max 73.7 cm/sec PA max PG 2.2 mmHg TR max shaina 272.6 cm/sec
--- NOTE | 2017-05-17 13:16 | Progress Note ---
Internal Med Progress Note Date of Service: May 17, 2017. Provider Documentation: SUBJECTIVE: Seen and examined at bedside Leg pain is controlled Denies chest pain, SOB, palpitations, dizziness No other complains OBJECTIVE: Vital Signs-as noted below Physical Exam: General Appearance:Moderately built and nourished, no apparent distress Head: normocephalic, Atraumatic Eyes: normal inspection, EOMI, PERRL Neck: supple, Trachea midline Respiratory/Chest: Normal breath sounds, CTA, No accessory muscle use Cardiovascular: S1, S2, No murmur Abdomen/GI:Soft, Non tender, Bowel sounds present Extremities/Musculoskelatal:LLE in surgical bandage Neurologic/Psych:AAOX3, grossly no focal neurological deficits Skin: normal color, warm Lab data as noted below. ASSESSMENT & PLAN: Patient is a 67 yr old female with no significant past medical history presented for repair of her L knee degenerative joint disease and had a syncopal episode. Syncope with Loss of Consciousness: Likely Vasovagal patient had a syncopal episode after sitting up to the side of her bed BP better after IVF yesterday TSH: normal lyme screen: negative (Had recent Tick bite) ECHO: as below May need cardiology eval as outpatient if symptoms reoccur L TKA POD # 2 pain control Wound care per Primary team PT/OT and weight bearing status as per ortho Monitor Hb for post op anemia DVT px On aspirin BID Code Status: FULL CODE Disposition: Per primary team Advised to follow up with PCP in 1 week Vital Signs: Date Time Temp Pulse Resp B/P (MAP) Pulse Ox O2 Delivery O2 Flow Rate FiO2 05/17/17 11:34 36.8 66 14 128/80 (96) 99 Room Air 05/17/17 08:03 36.9 64 14 138/80 (99) 98 Room Air 05/17/17 07:47 98 Room Air 05/17/17 07:22 Room Air 05/17/17 04:28 68 115/71 (86) 05/17/17 04:25 52 77/56 (63) 05/17/17 04:19 38 66/42 (50) 97 Room Air 05/17/17 03:35 36.8 72 18 124/72 (89) 97 Room Air 05/16/17 23:42 Room Air 05/16/17 22:56 36.8 68 18 137/74 (95) 98 Room Air 05/16/17 20:00 36.6 63 16 131/81 (98) 97 Room Air 05/16/17 15:25 36.6 65 16 154/82 (106) 100 Nasal Cannula 2.0 05/16/17 15:10 Nasal Cannula 2.0 05/16/17 13:10 71 16 144/79 (100) 100 Nasal Cannula 2.0 Lab Results: Results Past 24 Hours Test 05/17/17 04:15 05/17/17 04:24 Range/Units Bedside Glucose 131 70-90 mg/dl White Blood Count 8.35 4.8-10.8 K/uL Red Blood Count 3.70 4.2-5.4 M/uL Hemoglobin 10.5 12.0-16.0 g/dL Hematocrit 32.3 37-47 % Mean Corpuscular Volume 87.3 80-100 fL Mean Corpuscular Hemoglobin 28.4 25-34 pg Mean Corpuscular Hemoglobin Concent 32.5 32-36 g/dl RDW Standard Deviation 52.8 36.4-46.3 fL RDW Coefficient of Variation 16.6 11.5-14.5 % Platelet Count 145 130-400 K/uL Mean Platelet Volume 9.8 7.4-10.4 fL Sodium Level 137 136-145 mmol/L Potassium Level 4.2 3.5-5.1 mmol/L Chloride Level 103 98-107 mmol/L Carbon Dioxide Level 29 21-32 mmol/L Anion Gap 5.0 3-11 mmol/L Blood Urea Nitrogen 13 7-18 mg/dl Creatinine 0.84 0.60-1.20 mg/dl Est Creatinine Clear Calc Drug Dose 64.4 ml/min Estimated GFR () 83.9 Estimated GFR (Non- 72.4 BUN/Creatinine Ratio 15.4 10-20 Random Glucose 142 70-99 mg/dl Calcium Level 8.5 8.5-10.1 mg/dl Thyroid Stimulating Hormone (TSH) 2.830 0.300-4.500 uIu/ml Lyme Disease IgG Antibody NEG NEG Lyme Disease IgM Antibody NEG NEG Hepatitis C Antibody Screen NEG NEG
--- NOTE | 2017-05-17 17:52 | PROGRESS NOTE ---
DATE: 05/17/2017 SUBJECTIVE: A 67-year-old white female postop day #1 from left knee replacement. She is doing pretty well. Therapy went well. She did have a vasovagal episode this morning and passed out. She denies any chest pain or shortness of breath. No injuries. OBJECTIVE: VITAL SIGNS: Temperature is 36.5. Vital signs stable. GENERAL: Reveals a pleasant, middle-aged female. She is sitting up in bed and looks comfortable. LUNGS: Clear to auscultation. HEART: Regular rate and rhythm. ABDOMEN: Soft, nontender, nondistended. EXTREMITIES: Grossly neurovascularly intact except as follows: Examination of the left leg reveals the dressing to be clean, dry and intact. The patient can dorsiflex and plantarflex her foot appropriately. She is neurologically intact. LABORATORY DATA: Hemoglobin 10.5, hematocrit 32.3. Electrolytes are stable. ASSESSMENT: A 67-year-old white female postop day #1 from left knee replacement, doing pretty well. She had this vasovagal/hypotensive episode this morning, but has recovered from this. There has been no associated injuries. No cardiac symptoms. Her pain is controlled. She is neurologically intact. PLAN: 1. DVT prophylaxis including thigh-high TEDs, SCDs, and aspirin twice a day. 2. PT/OT. Weight bear as tolerated. Left total knee protocol. 3. Pain control. Doing well with current pain regimen. 4. Disposition: She is planning to be discharged to home with some home health once adequately recovered.
[2017-05-17] MEDS: SENNA 8.6 MG TAB PO SCH (21:06)
[2017-05-18] MEDS: KETOROLAC TROMETHAMINE 15 MG/ML VIAL IV. SCH ×2 (01:46→08:28)
[2017-05-18] MEDS: ACETAMINOPHEN 500 MG TAB PO SCH (05:22)
[2017-05-18 05:51] LABS: HEMATOCRIT 31.8 % (37-47)
[2017-05-18 06:29] LABS: BUN/CREATININE RATIO 10.9 (10-20); CALCIUM 9.3 mg/dl (8.5-10.1); CREATININE 0.83 mg/dl (0.60-1.20); MAGNESIUM 2.2 mg/dl (1.8-2.4); POTASSIUM 4.2 mmol/L (3.5-5.1)
[2017-05-18 06:55] VITALS: BP 162/74; PULSE 70; TEMP 36.8; O2SAT 99
--- NOTE | 2017-05-18 07:50 | PROGRESS NOTE ---
DATE: 05/18/2017 SUBJECTIVE: A 67-year-old white female postop day #2 from a left knee replacement. She is doing well. No further hypotensive episodes. No chest pain or shortness of breath. Not feeling dizzy or lightheaded. Her pain is controlled. OBJECTIVE: VITAL SIGNS: Temperature 36.8. Vital signs stable. GENERAL: Physical examination reveals a pleasant, middle-aged female. She is sitting up in her bedside and looks comfortable. EXTREMITIES: Examination of the left leg reveals the dressing to be in place. Just a slight bit of bloody drainage. Calf is soft and supple. She is neurologically intact. LABORATORY DATA: Hemoglobin 10.0. Hematocrit 31.8. Electrolytes are stable. ASSESSMENT: A 67-year-old white female postop day #2 from a left knee replacement, doing well. No further vasovagal or hypotensive episodes. Pain is controlled. PLAN: 1. DVT prophylaxis including thigh-high TEDs, SCDs, and aspirin twice a day. 2. PT/OT. Weightbear as tolerated. Left total knee protocol. 3. Pain control. Doing well with current pain regimen. 4. Disposition: Plan to discharge to home with some home health later today.
[2017-05-18] MEDS: PANTOprazole SOD 40 MG TAB PO SCH (08:28)
[2017-05-18] MEDS: MULTIVITAMIN TAB PO SCH (08:28)
[2017-05-18] MEDS: CHECK SCOPOLAMINE PATCH PLACEMENT SCH (08:28)
[2017-05-18] MEDS: DOCUSATE SODIUM 100 MG CAP PO SCH (08:28)
[2017-05-18] MEDS: ASPIRIN 325 MG ECTAB PO SCH (08:29)
[2017-05-18] MEDS: FERROUS GLUCONATE 324 MG TAB PO SCH (08:29)
[2017-05-18] MEDS: TAPENTADOL ER 50 MG TABCR PO SCH (08:32)
[2017-05-18 09:18] VITALS: BP 162/74; PULSE 70; TEMP 36.8; O2SAT 99
--- NOTE | 2017-05-22 15:09 | DISCHARGE SUMMARY ---
ADMITTING PHYSICIAN AND SURGEON: Dr. Hung. ADMITTING DIAGNOSES: 1. Left knee degenerative joint disease. 2. 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 PROCEDURE PERFORMED: Left total knee arthroplasty. CONSULTS: Dr. Stuart, hospitalist group for postoperative syncopal episode. SECONDARY DIAGNOSES: Mitral valve prolapse, arthritis, postoperative hypotension and syncope. HISTORY AND PHYSICAL EXAMINATION: Well documented in the patient's chart. HOSPITAL COURSE: The patient was admitted on 05/16/2017, underwent total knee arthroplasty, tolerated the procedure well. There were no complications. She was transferred to the PACU postoperatively and later to the orthopedic floor for further care. She was given Ancef for antibiotic prophylaxis, LIZET stockings, SCDs and aspirin for DVT prophylaxis. Hemoglobin, hematocrit and vital signs were monitored during her hospital stay. She did develop some postoperative anemia with a hemoglobin down to 10.0. She did not require any blood transfusions. She did have hypotension and a syncopal episode on postoperative day 1, the hospitalist service was consulted. She was given a fluid bolus and felt better after receiving this. Blood pressure and heart rate and remained stable. She did have an echocardiogram There were no complications during her hospital stay and no recurrent syncopal episodes. By postoperative day 2, she was tolerating a general diet. Pain was controlled with oral pain medicine. She was participating in physical therapy and had no signs or symptoms of deep vein thrombosis. On postoperative day 2, she was discharged home and set up with home health services. She was given printed discharge instructions including new prescriptions for extra-strength Tylenol, aspirin 325 mg b.i.d., iron supplement and oxycodone. She will continue her home medications with the exception of her home dose of Tylenol and aspirin, which were changed. Continue physical therapy, weightbearing as tolerated, LIZET stockings. Follow up in 10-12 days postoperatively or sooner if there are any problems or concerns. It was recommended that she follow up with her primary care provider as well.
== END 2017-05-18 09:40 | disposition home health service (06) | DRG 470 ==
LOC: C.ACU 05:01 → C.3E 06:35 → ENRESERV 09:50
PROVIDERS: ADMIT Orthopaedic Surgery Sports Medicine; ATTEND Orthopaedic Surgery Sports Medicine
PROC: 0SRD0J9 Replacement of Left Knee Joint with Synthetic Substitute, Cemented, Open Approach (ICD-10-PCS; principal; 2017-05-16 07:00)
DX: M17.12 Unilateral primary osteoarthritis, left knee (principal); D48.0 Neoplasm of uncertain behavior of bone and articular cartilage; I34.1 Nonrheumatic mitral (valve) prolapse; Z79.82 Long term (current) use of aspirin; M23.42 Loose body in knee, left knee; I95.9 Hypotension, unspecified; R55 Syncope and collapse